=== PATIENT | male | born 1975 | race Caucasian/White ===

== ENCOUNTER 2023-12-22 17:21 | Emergency (ER) | payer OTHER, SELFPAY ==
[2023-12-22 17:23] VITALS: BP 147/73
--- NOTE | 2023-12-22 18:22 | ED.GENMED ---
History of Present Illness
General
Chief Complaint: Fall
Source: patient
Exam Limitations: none
Time Seen by Provider: 12/22/23 18:03
Travel History
Have you had any contact with someone who has COVID-19?: No
Do you have any symptoms of coronavirus? Fever > 100 degrees, chills, cough, shortness of breath, sore throat, loss of taste or smell, muscle aches, or headache?: No
History of Present Illness
History of Present Illness:
This is a 48 year old male that comes in with c/o back and right flank pain. States that he was on a ladder and up about 5 feet. State that someone decided to adjust the ladder when he was on it ad he fell. States that he fell onto a wood floor.
Denies any LOC or head injury. States that he has pain in the right ribs and some discomfort with deep breathing. States that he also has pain in the back. Denies any fever, chills, chest pain, SOB, abd pain, nausea, vomiting, diarrhea, headache,
dizziness.
Past History
Past History
ED Past Medical History: Seizures; Negative Asthma, HTN, Hypercholesterolemia or NIDDM
ED Past Surgical History: Orthopedic (Back surgery)
Social History
Tobacco: Non-smoker
Alcohol: Occasional
Personal: Single
Living: alone
Review of Systems
Review of Systems
All Other Systems: ROS reviewed and negative except as documented in HPI and ROS
Constitutional: Reports no symptoms; Denies fever or chills
EENT: Reports no symptoms
Respiratory: Reports no symptoms; Denies cough or trouble breathing
Cardiac: Reports no symptoms; Denies chest pain
ABD/GI: Reports no symptoms; Denies abdominal pain, nausea, vomiting or diarrhea
: Reports no symptoms
Musculoskeletal: Reports back pain and other (right rib pain)
Skin: Reports no symptoms
Neurological: Reports no symptoms; Denies dizzy or headache
Psychiatric: Reports no symptoms
Phy Exam
General Physical Exam
General Presentation: mild distress
General age: appears stated age
General Skin: warm and dry
General Habitus: normal
General Mental: alert
General Hydration: appears well hydrated
Eye Exam
Eye Exam: EOMI
Cardiovascular Exam
Cardiovascular Exam: regular rate/rhythm, no edema, no murmur and normal peripheral pulses
Pulmonary Exam
Pulmonary Exam: lungs clear, no respiratory distress, no rales, chest non tender, no crackles, no rhonchi, no wheezing and no cough
Musculoskeletal Exam
Musculoskeletal Exam: full ROM, no edema and other (Right mid rib pain with palpation. Abrasion noted on the right mid back. Negative for discomfort with spinal palpation)
Skin Exam
Skin Exam: normal color, warm/dry, no rash and no petechia
Psychiatric Exam
Psychiatric Exam: normal mood/affect
Course
Orders/Labs/Results
Orders:
Orders
12/22/23 17:27
CR Lumbar Spine Comp Min 4 Vw* Urgent
Comment:
Reason For Exam: fall
CR Thoracic Spine 3 Views Urgent
Comment:
Reason For Exam: fall
12/22/23 18:12
Ribs, Right 3 View W/PA Chest [CR Ribs-right 3 Vw W/pa Chest*] Urgent
Comment:
Reason For Exam: fall, Right flank righ pain
12/22/23 18:13
Ibuprofen [Motrin] 600 mg PO NOW STA
Vital Signs
Initial and Last Documented VS:
Initial Vital Signs
Temp Pulse Resp BP Pulse Ox
98.3 F 71 20 147/73 99
12/22/23 17:23 12/22/23 17:23 12/22/23 17:23 12/22/23 17:23 12/22/23 17:23
Last Documented Vital Signs
Temp Pulse Resp BP Pulse Ox
98.3 F 71 20 147/73 99
12/22/23 17:23 12/22/23 17:23 12/22/23 17:23 12/22/23 17:23 12/22/23 17:23
MDM/Problems Addressed
Differential Diagnosis Includes:
Spinal contusion. Fracture ribs,
MDM/Problems Addressed:
This is a 48 year old male that comes in with c/o back pain and right flank pain. States that he fell about 5 feet off a ladder as someone tried to move the ladder when he was on it. States that he has back pain and has discomfort in the right ribs
with deep breathing.
Will get Thoracic, Lumbar and a right rib series.
Back over to see patient. Explained that he has 10th rib fracture. Back is negative for any fracture and hardware is in place. Patient to use an Incentive spirometer to help with deep breathing. Patient can also use Tylenol 1000mg every 6 hours and
Ibuprofen 600mg every 6 hours with food for pain. Ice to any area that is sore for the next 24 hours. Then heat or ice which ever makes him feel better. Follow up with the family doctor. Return with any concerns.
Chronic conditions affecting care:
NA
Acute Exacerbation and/or Progression of Chronic Illness:
NA
*Radiology
Radiology exam reviewed: radiology read reviewed (thoracic spine- Stable postsurgical change on the thoracic and lumbar spine. Stable scoliosis. Lumbar spine- Lumbar spinal levoscoliosis. Lumbar spine hardware. Stable. Rib series=No acute disease
of the chest. Subacute posterior right 10th rib fracture. New from previous exam. Scoliosis. Stable.) and other (rib series continued- Postsurgical change of the thoracic spine. Stable )
*Pulse Oximetry
Patient hypoxic: no
*EKG
Interpreted by ED Provider?: NA
Rate: EKG- N/A
*Hybrid Technologist Interpretation
Rate: Hybrid Technologist- N/A
*Critical Care Note
Total Time (30-74mins, 75-104mins- exclusive of procedures): Not Applicable
ED Attending Note
-
Portions of this chart may have been created with voice recognition software.� Occasional wrong word or��sound alike� substitutions may have occurred due to the inherent limitations of voice recognition software.
Discharge Plan
Departure
Patient Disposition: Home (Routine Discharge)
Date of Disposition: 12/22/23
Time of Disposition: 19:53
Patient with high blood pressure during this ER visit?: Yes
Condition: Good
Covid-19: Not Applicable
Discharge Problem:
Right rib fracture
Instructions: Rib Fracture (DC), BLOOD PRESSURE
Referrals:
Alok Ambriz, [Family Provider] - Follow up in 2-3 days
Activity Restrictions/Additional Instructions:
As discussed, the X-rays of the back are negative for any fractures and the hard lee are in place. However, there is a right 10th rib fracture. Please remember to take deep breaths. You may use Tylenol 1000mg every 6 hours and Ibuprofen 600mg
every 6 hours with food for pain. Ice for the next 24 hours to any area that is sore. Then after this you can use heat or ice. Follow up with the family doctor for recheck. IF YOU HAVE SHORTNESS OF BREATH, INCREASED OR CHANGING PAIN, OR YOU HAVE ANY
OTHER CONCERNS PLEASE RETURN TO THE EMERGENCY ROOM.
Interventions
Interventions:
*Risk Screen - Suicide Last Done: 12/22/23 17:23
*General Assessment Last Done: 12/22/23 17:23
ED- Fall Risk Assessment Last Done: 12/22/23 18:19
ED-Musculoskeletal Assessment Last Done: 12/22/23 18:19
ED- Neurological Assessment Last Done: 12/22/23 18:19
ED-Skin Assessment Last Done: 12/22/23 18:19
[2023-12-22] MEDS: MOTRIN 600 MG PO (18:24)
[2023-12-22 20:15] VITALS: BP 120/80
== END 2023-12-22 20:17 | disposition home or self-care (01) ==
LOC: EMR 17:21
PROVIDERS: EMERGENCY PHYSICIAN Emergency Medicine; FAMILY PHYSICIAN Family Medicine
DX: S22.31XA Fracture of one rib, right side, initial encounter for closed fracture (principal); W11.XXXA Fall on and from ladder, initial encounter; M41.9 Scoliosis, unspecified
CPT/HCPCS: 99283; 71101; 72072; 72110

== ENCOUNTER → 2025-03-31 07:01 | Outpatient (REF) | payer OTHER, SELFPAY ==
--- NOTE | 2025-03-31 17:51 | EEG.RPT ---
Electroencephalogram Report
Recording
Date of EE03/31/25
Type of EEG: Routine
Length of EEG recordin mins
Patient Status: Outpatient
Recording Conditions: Awake, Drowsy and Asleep
Hyperventilation Performed: No
Photic Stimulation Performed: Yes
Report
Clinical Background:�49 year old man with history of seizures
Introduction: A routine bedside EEG was done using [employer] 10-20 electrode placement protocol.
Background: In the most alert state, the PDR is 10-11 Hz in frequency with normal amplitude. There is spontaneous variability and reactivity.�There is a moderate amount of genealized beta.
Sleep: Stage I sleep is seen.�
Focal/epileptiform: There were no focal or epileptiform discharges. No clinical or electrographic seizures occurred during this recording.
Photic stimulation: resulted in normal driving response. There was no photo myogenic or photoparoxysmal response.�
Impression: Normal EEG
== END ==
LOC: EEG 07:01
PROVIDERS: ATTENDING PHYSICIAN Family Medicine
DX: R56.9 Unspecified convulsions (principal); Z87.898 Personal history of other specified conditions
CPT/HCPCS: 95816